=== PATIENT | male | born 1985 ===

== ENCOUNTER → 2021-02-10 08:24 | Outpatient (CLI) | payer BC, SELFPAY ==
[2021-02-10 22:15] LABS: COVID19 - ORCAS (NP or Nasal) POSITIVE (Negative)
== END ==
PROVIDERS: PCP Family Medicine; Visit Provider Family Medicine
DX: U07.1 COVID-19 (principal); Z20.822 Contact with and (suspected) exposure to COVID-19
CPT/HCPCS: U0003